=== PATIENT | male | born 1935 | race Caucasian/White ===

== ENCOUNTER 2021-01-21 17:21 | Emergency (ER) | payer OTHER ==
[2021-01-21] MEDS: amLODIPine 5 MG Tab PO ONE ×2 (18:06→18:15)
[2021-01-21 18:42] LABS: CHLORIDE,CL 97 mmol/L (98-107); SODIUM,NA 135 mmol/L (136-145)
--- NOTE | 2021-01-21 18:44 | EDM.PDOC ---
ED HPI GENERAL MEDICAL PROBLEM - General Chief Complaint: Cardiovascular Problem Stated Complaint: hypertension Time Seen by Provider: 01/21/21 17:34 Source of Information: Reports: Patient History Limitations: Reports: No Limitations - History of Present Illness INITIAL COMMENTS - FREE TEXT/NARRATIVE: Patient sent here by vets home due to elevated BP systolic reading. Diastolics have been normal/under 80. Systolic was around 215 this evening. He is not on any BP meds. He had no complaints and says to us that he feels well. Staff at [facility] said patient mentioned his legs felt heavy, something he is not complaining of here. Exercises regularly. On supplements. - Related Data Allergies Allergy/AdvReac Type Severity Reaction Status Date / Time No Known Allergies Allergy Verified 01/21/21 17:27 Past Medical History Cardiovascular History: Reports: CAD (bypass graft), High Cholesterol, Other (See Below) (Isolated systolic hypertension) Social & Family History - Tobacco Use Tobacco Use Status *Q: Former Tobacco User Years of Tobacco use: 20 Used Tobacco, but Quit: Yes Month/Year Tobacco Last Used: 1979 - Caffeine Use Caffeine Use: Reports: None - Recreational Drug Use Recreational Drug Use: No ED ROS GENERAL - Review of Systems Review Of Systems: Comprehensive ROS is negative, except as noted in HPI. ED EXAM, GENERAL - Physical Exam Exam: See Below Exam Limited By: No Limitations General Appearance: Alert, WD/WN, No Apparent Distress Eye Exam: Bilateral Eye: EOMI, PERRL Ears: Hearing Grossly Normal Nose: No: Nasal Deformity, Nasal Swelling, Nasal Drainage Throat/Mouth: Normal Lips, Normal Voice, No Airway Compromise Head: Atraumatic, Normocephalic Neck: Supple Respiratory/Chest: No Respiratory Distress, Lungs Clear, Normal Breath Sounds, No Accessory Muscle Use, Chest Non-Tender Cardiovascular: Normal Peripheral Pulses, Regular Rate, Rhythm, No Edema, No Murmur GI/Abdominal: Soft, Non-Tender (Male) Exam: Deferred Rectal (Males) Exam: Deferred Back Exam: Normal Inspection Extremities: Normal Range of Motion, Non-Tender, No Pedal Edema, Normal Capillary Refill Neurological: Alert, Oriented, Normal Cognition, No Motor/Sensory Deficits Psychiatric: Normal Affect, Normal Mood Skin Exam: Warm, Dry, Intact, Normal Color Course - Vital Signs Last Recorded V/S: Last Vital Signs Temp 37.3 C 01/21/21 17:27 Pulse 57 L 05/08/21 18:10 Resp 16 01/21/21 18:10 BP 171/62 H 01/21/21 18:10 Pulse Ox 100 01/21/21 18:10 - Orders/Labs/Meds Orders: Active Orders 24 hr Category Date Time Status COMPREHENSIVE METABOLIC PN,CMP [CHEM] Stat Lab 01/21/21 18:17 Received MG [MAGNESIUM] [CHEM] Stat Lab 01/21/21 18:17 Received TSH ULTRASENSITIVE [CHEM] Stat Lab 01/21/21 18:17 Received Labs: Laboratory Tests 01/21/21 Range/Units 18:17 WBC 5.2 (4.0-10.2) K/uL RBC 4.17 L (4.33-5.41) M/uL Hgb 13.0 L D (13.1-16.8) g/dL Hct 38.9 L (39.0-49.0) % MCV 93.3 (84.0-98.0) fL MCH 31.2 (28.2-33.3) pg MCHC 33.4 (31.7-36.0) g/dL RDW 13.0 (11.2-14.1) % Plt Count 193 (150-350) K/uL Neut % (Auto) 64.4 (45.0-80.0) % Lymph % (Auto) 22.4 (10.0-50.0) % [place] % (Auto) 12.4 (2.0-14.0) % Eos % (Auto) 0.6 (0.0-5.0) % Baso % (Auto) 0.2 (0.0-2.0) % Neut # (Auto) 3.37 (1.40-7.00) K/uL Lymph # (Auto) 1.17 (0.50-3.50) K/uL [place] # (Auto) 0.65 (0.00-1.00) K/uL Eos # (Auto) 0.03 (0.00-0.50) K/uL Baso # (Auto) 0.01 (0.00-0.20) K/uL Meds: Medications Discontinued Medications Generic Name Dose Route Start Last Admin Trade Name Freq PRN Reason Stop Dose Admin Amlodipine Besylate 5 mg 01/21/21 17:38 01/21/21 18:15 Amlodipine 5 Mg Tab PO 01/21/21 17:39 Not Given ONETIME ONE - Re-Assessments/Exams Free Text/Narrative Re-Assessment/Exam: 01/21/21 18:48 CBC/Chem/Mag overall unremarkable with no significant aberrations. BP noted to be 170s systolic for multiple readings with normal diastolic levels. They im proved to systolic of 145. Patient declined Norvasc. Given the systolic readings significantly improving, together with patient's extreme reluctance to start any medications, a conservative plan of action was developed with the patient's input. Risks of elevated isolated systolic elevation reviewed with patient, such as stroke. Plan at this time is to have him check his blood pressures every 2 hours while awake over the next week and keep written log of them. He does have his own BP machine in his room. He is to review the readings with Stephanie on rounds. At that time they can discuss if he needs to start low dose of Norvasc which is considered a first line therapy for stage 2-3 isolated systolic hypertension. Patient is in agreement with this plan. To follow up otherwise as needed if acute changes/problems are noted. Departure - Departure Time of Disposition: 18:55 Disposition: Home, Self-Care 01 Condition: Good Clinical Impression: Systolic hypertension, isolated Referrals: Le Marquez PA [Primary Care Provider] - Additional Instructions: Set aside some paper and keep track of your blood pressure REGULARLY during your waking hours. Check it every 2-3 hours and write it down. If you wake up in the middle of the night check it then too. Remember to sit still for 5 minutes before checking a reading. Do this for one week. Review the week's log with Stephanie the following week and see what the trends were. If you are running quite a bit of time with the systolic greater than 160 you should consider starting Norvasc. This medication is a first line medicine for isolated systolic hypertension. OK to keep taking your supplements and be active. Follow up in the ER if you have sudden worsening problems/concerns. Sepsis Event Note (ED) - Evaluation Sepsis Screening Result: No Definite Risk - Focused Exam Vital Signs: Vital Signs Temp Pulse Resp BP Pulse Ox 01/21/21 18:10 57 L 16 171/62 H 100 01/21/21 17:30 65 16 177/62 H 100 01/21/21 17:27 37.3 C 52 L 16 191/65 H 100 - My Orders Last 24 Hours: My Active Orders 01/21/21 18:17 COMPREHENSIVE METABOLIC PN,CMP [CHEM] Stat MG [MAGNESIUM] [CHEM] Stat TSH ULTRASENSITIVE [CHEM] Stat - Assessment/Plan Last 24 Hours: My Active Orders 01/21/21 18:17 COMPREHENSIVE METABOLIC PN,CMP [CHEM] Stat MG [MAGNESIUM] [CHEM] Stat TSH ULTRASENSITIVE [CHEM] Stat
== END 2021-01-21 19:00 | disposition home or self-care (01) ==
LOC: LL.ED 17:21
DX: I10 Essential (primary) hypertension (principal); I25.10 Atherosclerotic heart disease of native coronary artery without angina pectoris; E78.00 Pure hypercholesterolemia, unspecified; Z87.891 Personal history of nicotine dependence; Z95.1 Presence of aortocoronary bypass graft
CPT/HCPCS: 36415; 80053; 83735; 84443; 85025; 99283; A9270-GY

== ENCOUNTER 2023-05-23 13:51 | Emergency (ER) | payer OTHER ==
[2023-05-23] MEDS ORDERED: Lidocaine 2% with EPINEPHrine 1:100,000 20 ML MDV INJECT ONE (14:34)
== END 2023-05-23 17:05 | disposition home or self-care (01) ==
LOC: LL.ED 13:51
DX: L02.413 Cutaneous abscess of right upper limb (principal); I25.10 Atherosclerotic heart disease of native coronary artery without angina pectoris; Z87.891 Personal history of nicotine dependence
CPT/HCPCS: 10060; 87070; 87186; 87205; 99283

== ENCOUNTER 2023-06-13 14:43 | Emergency (ER) | payer OTHER ==
[2023-06-13 15:26] LABS: BASOPHILS ABSOLUTE AUTO 0.02 K/uL (0.00-0.20); BASOPHILS PERCENT AUTO 0.3 % (0.0-2.0); EOSINOPHILS ABSOLUTE AUTO 0.08 K/uL (0.00-0.50); EOSINOPHILS PERCENT AUTO 1.3 % (0.0-5.0); HEMOGLOBIN 13.9 g/dL (13.1-16.8); LYMPHOCYTES ABSOLUTE AUTO 1.66 K/uL (0.50-3.50); LYMPHOCYTES PERCENT AUTO 25.9 % (10.0-50.0); MEAN CORPUSCULAR HEMOGLOBIN 31.1 pg (28.2-33.3); MEAN CORPUSCULAR HGB CONC 33.9 g/dL (31.7-36.0); MEAN CORPUSCULAR VOLUME 91.7 fL (84.0-98.0); MONOCYTES ABSOLUTE AUTO 0.71 K/uL (0.00-1.00); MONOCYTES PERCENT AUTO 11.1 % (2.0-14.0); NEUTROPHILS ABSOLUTE AUTO 3.93 K/uL (1.40-7.00); NEUTROPHILS PERCENT AUTO 61.4 % (45.0-80.0); PLATELET COUNT,PLT 244 K/uL (150-350); RED BLOOD CELL COUNT 4.47 M/uL (4.33-5.41); RED CELL DISTRIBUTION WIDTH 12.5 % (11.2-14.1); WHITE BLOOD CELL COUNT,WBC 6.4 K/uL (4.0-10.2)
[2023-06-13 15:37] LABS: PROTHROMBIN TIME 10.4 SEC (9.0-11.1)
[2023-06-13 15:43] LABS: ALANINE AMINOTRANSFERASE,ALT 11 U/L (12-78); ALBUMIN 3.7 g/dL (3.4-5.0); ALKALINE PHOSPHATASE 61 IU/L (46-116); ASPARTATE AMNIOTRANSFERASE,AST 15 U/L (15-37); BILIRUBIN TOTAL 0.3 mg/dL (0.2-1.0); BLOOD UREA NITROGEN,BUN 8 mg/dL (7-18); CHLORIDE,CL 99 mmol/L (98-107); CREATININE 0.78 mg/dL (0.51-1.17); GLUCOSE RANDOM 98 mg/dL (70-99); POTASSIUM,K 3.5 mmol/L (3.5-5.1); PROTEIN TOTAL,TP 7.4 g/dL (6.4-8.2); SODIUM,NA 138 mmol/L (136-145)
[2023-06-13 15:44] LABS: ANION GAP 12.5 meq/L (7-15); ESTIMATED GFR 86 mL/min (>=60)
[2023-06-13] MEDS ORDERED: ALPRAZolam 0.25 MG Tab PO ONE (16:42)
== END 2023-06-13 18:00 | disposition home or self-care (01) ==
LOC: LL.ED 14:43
DX: I10 Essential (primary) hypertension (principal); F41.9 Anxiety disorder, unspecified; K46.9 Unspecified abdominal hernia without obstruction or gangrene; I25.10 Atherosclerotic heart disease of native coronary artery without angina pectoris
CPT/HCPCS: 36415; 71045; 80053; 83605; 84484; 85025; 85610; 93005; 99284; A9270; 93010